=== PATIENT | female | born 1995 | race African-American/Black ===

== ENCOUNTER 2017-11-30 18:49 | Emergency (ER) | payer BC ==
--- NOTE | 2017-11-30 20:32 | ED ---
GI/ HPI - HPI Summary HPI Summary: 22 year old F from Urgent Care to [facility] complains of intermittent heavy vaginal bleeding since 3 days ago. The patient rates the pain 7/10 in severity. Symptoms aggravated by nothing. Symptoms alleviated by nothing. Patient reports lower abdominal pain, nauseax1 day. Patient denies vomiting. She additionally complains of back pain d/t hx fibroids which usually goes away after she begins her period, but has not resolved. Patient is not currently being treated for fibroids. Patient called her card mounter in [place] yesterday who prescribed naproxen, which helped with pain yesterday, but not today. - History of Current Complaint Chief Complaint: EDVaginalBleeding Stated Complaint: ABD PAIN Hx Obtained From: Patient Onset/Duration: Started Days Ago - 3, Still Present Timing: Intermittent Current Severity: Moderate Pain Intensity: 7 Location of Pain: Other - lower abdominal pain Associated Signs and Symptoms: Positive: Negative - vomiting, Other: - lower abdominal pain, nauseax1 day, back pain d/t hx fibroids - Allergy/Home Medications Allergies/Adverse Reactions: Allergies Allergy/AdvReac Type Severity Reaction Status Date / Time No Known Allergies Allergy Verified 11/30/17 18:57 Home Medications: Home Medications NK [No Home Medications Reported] 11/30/17 [History Confirmed 11/30/17] PMH/Surg Hx/FS Hx/Imm Hx Previously Healthy: No - hx fibroids Endocrine/Hematology History: Denies: Hx Diabetes Cardiovascular History: Denies: Hx Hypertension - Surgical History Surgery Procedure, Year, and Place: cyst removal 2017 - Immunization History Date of Tetanus Vaccine: utd Date of Influenza Vaccine: unk Infectious Disease History: No Infectious Disease History: Denies: Traveled Outside the [place] in Last 30 Days - Family History Known Family History: Positive: Hypertension - both parents - Social History Alcohol Use: Occasionally Hx Substance Use: No Substance Use Type: Reports: None Hx Tobacco Use: No Smoking Status (MU): Never Smoked Tobacco Review of Systems Positive: Abdominal Pain - lower, Nausea - x1 day. Negative: Vomiting Genitourinary: Other - of intermittent heavy vaginal bleeding since 3 days ago Positive: Other - back pain d/t hx fibroids which usually goes away after she begins her period, but has not resolved All Other Systems Reviewed And Are Negative: Yes Physical Exam - Summary Physical Exam Summary: Appearance: Well-appearing, Well-nourished, lying in bed comfortably Skin: Warm, dry, no obvious rash Eyes: sclera anicteric, no conjunctival pallor ENT: mucous membranes moist, pharynx appears normal Neck: Supple, nontender Respiratory: Clear to auscultation, no signs of respiratory distress Cardiovascular: Normal S1, S2. No murmurs. Normal distal pulses in tibial and radial bilaterally. Abdomen: Lower abdominal tenderness without peritoneal signs Musculoskeletal: Normal, Strength/ROM Intact Neurological: A&Ox3, awake and alert, mentation is normal, speech is fluent and appropriate Psychiatric: affect is normal, does not appear anxious or depressed Triage Information Reviewed: Yes Vital Signs On Initial Exam: Initial Vitals Temp Pulse Resp BP Pulse Ox 99.2 F 67 18 140/76 100 11/30/17 18:57 11/30/17 18:57 11/30/17 18:57 11/30/17 18:57 11/30/17 18:57 Vital Signs Reviewed: Yes Diagnostics - Vital Signs Vital Signs Temp Pulse Resp BP Pulse Ox 11/30/17 18:57 99.2 F 67 18 140/76 100 - Laboratory Result Diagrams: 11/30/17 20:20 11/30/17 20:20 Lab Statement: Any lab studies that have been ordered have been reviewed, and results considered in the medical decision making process. - Additional Comments Diagnostic Additional Comments: Transvaginal US, per radiologist, shows Single uterine leiomyoma. ED physician has reviewed this report. GIGU Course/Dx - Diagnoses Provider Diagnoses: Dysmenorrhea Discharge - Sign-Out/Discharge Documenting (check all that apply): Patient Departure - Discharge - Discharge Plan Condition: Good Disposition: HOME Patient Education Materials: Dysmenorrhea (ED) Referrals: No Primary Care Phys,NOPCP [Primary Care Provider] - [facility] [Outside] Additional Instructions: Contact your card mounter on [place]. If your symptoms referable to the fibroid are worsening, there are many different treatment options. - Billing Disposition and Condition Condition: GOOD Disposition: Home - Attestation Statements Document Initiated by Scribe: Yes Documenting Scribe: Samantha Mendoza Provider For Whom Scribe is Documenting (Include Credential): Harsh French MD Scribe Attestation: Samantha Posadas, scribed for Harsh French MD on 12/02/17 at 0118. Scribe Documentation Reviewed: Yes Provider Attestation: The documentation as recorded by the scribe, Samantha Mendoza accurately reflects the service I personally performed and the decisions made by me, Harsh French MD
[2017-11-30 20:36] LABS: ABS Basophils 0.1 10^3/ul (0-0.2); ABS Eosinophils 0 10^3/ul (0-0.6); ABS Lymphocytes 2.5 10^3/ul (1.0-4.8); ABS Monocytes 0.7 10^3/ul (0-0.8); ABS Neutrophils 6.3 10^3/ul (1.5-7.7); ABS Nucleated RBC 0 10^3/ul; Eosinophil % 0.3 % (0-6); Hematocrit 39 % (35-47); Lymphocyte % 26.2 % (25-47); Mean Corpuscular HGB Conc 34 g/dl (31-36); Mean Corpuscular Hemoglobin 31 pg (27-31); Mean Corpuscular Volume 92 fL (80-97); Mean Platelet Volume 7.9 um3 (7.4-10.4); Nucleated Red Blood Cells % 0.1; Platelet Count 287 10^3/ul (150-450); Red Blood Count 4.17 10^6/ul (4.00-5.40); Red Cell Distribution Width 13 % (10.5-15); White Blood Count 9.6 10^3/ul (3.5-10.8)
[2017-11-30 20:42] LABS: INR 0.93 (0.77-1.02)
[2017-11-30 20:48] LABS: EGFR Non-African American 101.3 (>60)
--- NOTE | 2017-11-30 21:46 | RAD ---
EXAM: US Pelvis, Transvaginal CLINICAL HISTORY: 22 years old, female; Pain; Pelvic pain; Patient HX: HX of fibroids. Rlq pain and bleeding; Additional info: Heavy bleeding, pain, h/o fibroids TECHNIQUE: Real-time transvaginal pelvic ultrasound (complete) with image documentation. Transvaginal imaging was used for better evaluation of the endometrium and adnexa. COMPARISON: No relevant prior studies available. FINDINGS: Uterus/cervix: Anteverted anteflexed. Measures 7.3 x 4.1 x 4.6 cm (72 cc). Subserosal mass right fundus measures 3.0 x 3.0 x 2.5 cm. No additional masses. Early proliferative phase endometrium measuring 0.6 cm. Right ovary: Right ovary measures 3.7 x 2.5 x 2.1 cm (10.1 cc). Normal size and echogenicity with no masses. Normal follicles. Normal arterial and venous waveforms. Left ovary: Left ovary measures 3.5 x 3.0 x 2.5 cm (13.7 cc). Normal size and echogenicity with no masses. Normal follicles. Normal arterial and venous waveforms. Normal blood flow. Free fluid: No free fluid. Bladder: Empty bladder which cannot be evaluated with this probe. IMPRESSION: Single uterine leiomyoma.
[2017-11-30 23:13] VITALS: BP 138/83
== END 2017-11-30 23:10 | disposition home or self-care (01) ==
LOC: ED 18:49
DX: N94.6 Dysmenorrhea, unspecified (principal); R10.9 Unspecified abdominal pain; R10.30 Lower abdominal pain, unspecified
CPT/HCPCS: 36415; 76830; 80053; 83605; 84702; 85025; 85610; 99283